=== PATIENT | male | born 1955 | race Caucasian/White ===

== ENCOUNTER → 2019-07-31 10:44 | Outpatient (CLI) | payer OTHER, SELFPAY ==
[2019-07-31 11:56] LABS: Add Manual Diff / Slide Review NO; Basophils Absolute Auto 100 /uL (0-100); Basophils Percent Auto 0.9 % (0-2); Eosinophils Absolute Auto 300 /uL (0-450); Eosinophils Percent Auto 3.1 % (2-4); Hematocrit 43.4 % (41-53); Hemoglobin 15.1 g/dL (13.5-17.5); Lymphocytes Absolute Auto 2300 /uL (1100-4500); Lymphocytes Percent Auto 25.6 % (25-40); Mean Corpuscular HGB Conc 34.9 % (30-36); Mean Corpuscular Hemoglobin 32.6 PG (26-34); Mean Corpuscular Volume 93.4 fL (80-100); Monocytes Absolute Auto 700 /uL (0-900); Monocytes Percent Auto 7.8 % (3-14); Neutrophils Absolute Auto 5600 /uL (1500-7000); Neutrophils Percent Auto 62.6 % (50-75); Platelet Count 240 X10^3/uL (150-400); Red Blood Cell Count 4.65 X10^6/uL (4.5-5.9); Red Cell Distribution Width 12.3 % (11.6-14.8)
[2019-07-31 12:00] LABS: Hemoglobin A1C% w Est Avg Glu 5.6 % (4.0-6.0)
[2019-07-31 12:07] LABS: Carbon Dioxide 24 mmol/L (22-32); Chloride 103 mmol/L (98-107); HEMOLYSIS < 15 (0-50); Potassium 4.4 mmol/L (3.4-5.1); Sodium 138 mmol/L (137-145)
== END ==
PROVIDERS: Referring Provider Orthopaedic Surgery; Visit Provider Orthopaedic Surgery
DX: Z01.818 Encounter for other preprocedural examination (principal); Z01.812 Encounter for preprocedural laboratory examination; R73.9 Hyperglycemia, unspecified
CPT/HCPCS: 36415; 80051; 83036; 85025; 93005

== ENCOUNTER → 2019-08-17 09:46 | Outpatient (CLI) | payer OTHER, SELFPAY ==
[2019-08-18 08:29] LABS: COVID19 Sendout Not Detected (Not Detect)
== END ==
PROVIDERS: Visit Provider Physician Assistant
DX: Z01.812 Encounter for preprocedural laboratory examination (principal)
CPT/HCPCS: 87635

== ENCOUNTER 2019-08-19 07:58 | Day surgery (SDC) | payer OTHER, SELFPAY ==
[2019-08-11 08:40] VITALS: BMI 34.8
[2019-08-19] VITALS (12 sets, daily range): BP systolic 118–150; BP diastolic 70–91; PULSE 75–109; RESP 12–20; TEMP 35.8–36.4; O2SAT 96–100; BMI 34.3
--- NOTE | 2019-08-19 | DI.RAD.S_ITS ---
PROCEDURE: XR HIP RT 1V INDICATIONS: POST OP TECHNIQUE: 2 view(s) of the hip acquired. COMPARISON: None. FINDINGS: Bones: Patient is status post right hip arthroplasty, with hardware components in expected positions. The hip joint appears congruent. The visualized bony structures appear intact. Mild left hip degeneration. Decreased left femoral head neck step-off. Soft tissues: Overlying postoperative changes are noted. No suspicious soft tissue densities. IMPRESSION: Expected postoperative appearance Dictated by: Mert Walton M.D. on 08/19/2019 at 11:28 Approved by: Mert Walton M.D. on 08/19/2019 at 11:29
[2019-08-19] MEDS: LACTATED RINGERS 1,000 ML 42 ML IV (08:32)
--- NOTE | 2019-08-19 08:35 | PM.HP.1 ---
History of Present Illness History of Present Illness Date Patient Seen: 08/19/19 Time Patient Seen: 08:36 Chief complaint: Right Total Hip Arthroplasty *OPB* Narrative: 64-year-old male with progressive right hip pain, limited ambulation and activity tolerance, difficulties with ADLs, pain with activities and at rest, and failure of conservative treatment. He has been followed in clinic and we have discussed the nature of condition, differential diagnosis, prognosis, and options. He would like to proceed with total hip arthroplasty and is admitted to the hospital today for that purpose. Patient History Medical History (Updated 08/11/19 @ 09:17 by Paula Dalal RN) Diabetes (Acute) Eczema (Acute) HLD (hyperlipidemia) (Acute) Osteoarthritis (Acute) RBBB (right bundle branch block) (Acute) Surgical History (Updated 08/11/19 @ 09:17 by Paula Dalal RN) History of vasectomy (Acute) Hx of left knee surgery (Acute) Family & Social History Social History: household members spouse Prior Living Arrangements House Safety & Behavioral: Feels Safe in Current Yes Environment Been Physically Hurt or No Threatened By a Person Suicidal Ideation Description None Suicide Plan Description No Plan Tobacco & Substance use: Tobacco type cigarettes Smoking Status Current some day smoker alcohol intake current alcohol intake frequency 3 or more drinks per day Substance Use Type marijuana Meds Home Medications and Allergies Home Medications Medication Instructions Recorded Confirmed Type acetaminophen [Tylenol Arthritis 1,300 mg PO QD-BID PRN 08/11/19 08/11/19 History Pain] aspirin 81 mg PO DAILY 08/11/19 08/19/19 History atorvastatin 20 mg PO DAILY 08/11/19 08/19/19 History metformin 500 mg PO BID 08/11/19 08/19/19 History Allergies Allergy/AdvReac Type Severity Reaction Status Date / Time No Known Drug Allergies Allergy Verified 08/19/19 08:21 Review of Systems Review of Systems ROS: Yes All systems reviewed with the patient and are negative except as otherwise documented Exam Vital Signs (past 8 hours): - 08/19/19 08:22 Temperature 97.0 F L Pulse Rate 83 Respiratory Rate 16 Blood Pressure 150/91 H Pulse Oximetry 97 Oxygen Delivery Method Room Air Narrative Exam Narrative: Patient is awake, alert, conversant, and oriented. Vital signs are stable and the patient is afebrile HEENT: Normocephalic and atraumatic Lungs: Clear to auscultation Heart: Regular rate and rhythm Abdomen: Benign Extremities limited range of motion of the lower extremities/hips right worse than left with pain on extremes of motion. Distal neurovascular examination is intact. Assessment & Plan Assessment & Plan narrative: 64-year-old male admitted for elective right total hip arthroplasty. Informed consent obtained. COVID-19 COVID-19 status: Negative Result date/Date tested (Pos, Neg/Pending): 08/17/19
[2019-08-19] MEDS: CELECOXIB 200 MG CAPSULE PO (08:39)
[2019-08-19] MEDS: ACETAMINOPHEN 325 MG TABLET 975 MG PO (08:39)
--- NOTE | 2019-08-19 08:39 | PM.PREOP ---
Pre-operative Note COVID-19 COVID-19 status: Negative Result date/Date tested (Pos, Neg/Pending): 08/17/19 Interval Note History & Physical reviewed/Exam performed by Physician: Yes Changes to H&P: No
[2019-08-19] MEDS: CEFAZOLIN 2 GM/100 ML FROZ.PIGGY IV ×2 (08:57→17:04)
[2019-08-19] MEDS: TRANEXAMIC ACID 1,000 MG VIAL 1000 MG IV ×2 (09:15→10:12)
--- NOTE | 2019-08-19 09:33 | SUR.OPER ---
Lateral on padded OR bed. Gel axillary roll. Arms secured on padded armboard with pillow supporting top arm. Padded hip positioner braces x4 - anterior and posterior chest and pelvis. Additional gel pad used anterior pelvis. Gel pad under bottom leg from knee to foot and secured with tape over sheet.
[2019-08-19] MEDS: ROPIVACAINE 0.5% PF 20ML 60 ML, MORPHINE 4 MG, KETOROLAC 30 MG INJ (09:45)
--- NOTE | 2019-08-19 10:49 | P.OP_ITS ---
Operative Date/Time/Diagnoses Date of procedure: 08/19/19 Time of procedure: 10:49 Pre-op diagnosis: Right hip DJD Post-op diagnosis: same Procedure & Clinicians Procedure: Right total hip arthroplasty (CPT code 74097 with assistance) Same procedure as scheduled: Yes Indications: Patient is an 64-year-old male with severe right hip DJD. The patient has pain with activities and at rest, limited ambulation and activity tolerance, difficulties with ADLs, and failure of conservative treatment. We have discussed the nature of condition, treatment options, risks and benefits, and patient elects to proceed with total hip arthroplasty and gives informed consent. Surgeon: Ray Zayas [employer] Beauty Advisor: Sanchez Sullivan Anesthesia Type: General and Spinal Operative Notes Closure Type: primary Specimen(s): none sent Prosthetic devices, grafts, tissues, transplants, or devices: Acetabulum: Wheat and Nephew R3 acetabular component size 58 mm Femoral component: Wheat and Nephew Synergy stem size 5 with high offset Femoral head: 36 mm + 0 Oxinium Estimated Blood Loss (mL): 150 Blood products transfused: none Procedure in detail: After satisfaction induction of anesthetic, and administration of IV antibiotics, the patient was positioned in the lateral decubitus position with all bony prominences well padded and pelvic position secured using a hip beef grinder positioning device. Right hip and lower extremity prepped and draped in the usual sterile fashion, 1st dose of intravenous tranexamic acid was administered, then a longitudinal incision was created centered over the greater trochanter and carried sharply through the skin and subcutaneous tissues down to the fascia anne which was divided longitudinally and retracted with a Charnley retractor. External rotators visualize, cut, tagged, and retracted posteriorly, then the capsule was cut in a T-type fashion with the corners tagged and retracted. Hip was dislocated and femoral neck cut made according to preoperative templating. Acetabular retractors then placed, and the acetabular labrum and osteophytes were excised. The acetabulum was then sequentially reamed to 57 mm with an excellent circumferential ream and fit with the trial. The trial component was removed and a permanent size 58 mm Wheat and Nephew R3 acetabular component was selected, positioned, and impacted with satisfactory position and fixation achieved. Permanent liner was then inserted with the elevated lip directed posteriorly. Soft tissue then removed off the lateral femoral neck in the lateral neck was entered using a box osteotome. T- handled reamers placed down the canal followed by sequential broaching to 5 with the final broach left in place for trial reduction which demonstrated excellent leg length, range of motion, and stability characteristics with a 36 mm +0 trial ball. The trial and broach were removed, and a permanent size 5 high offset Whaet and Nephew Synergy stem was selected and inserted with excellent position and fixation achieved. Another trial reduction yielded the above characteristics so the trial ball was exchanged for a permanent 36 mm +0 Oxinium ball. The hip was irrigated and reduced and excellent leg length range of motion and stability characteristics were achieved and maintained. Periarticular tissues were infiltrated with morphine, ropivacaine, and Toradol. The hip was copiously irrigated, and the capsule repaired with #2 Ethibond, and the piriformis was repaired back to the greater trochanter with the same. Fascia anne closed with interrupted #1 Ethibond sutures, and the subcutaneous tissues were closed in 2 layers of 0 Vicryl and 2 0 Vicryl. Skin was closed with miriam and sterile dressings applied. Second dose of tranexamic acid was administered intravenously, and the anesthetic was terminated. Complications: none Post-operative Condition: stable Disposition: PACU Plan for aftercare: Patient will be admitted to the acute care [facility], and anticipate discharge on postop day 1 with follow-up in office in 10-14 days. Outpatient physical therapy will be arranged and patient will continue to observe posterior hip precautions. Patient will continue use of postoperative Lovenox for 10 days postop.
[2019-08-19] MEDS: LACTATED RINGERS 1,000 ML 125 ML IV ×2 (11:36→19:25)
--- NOTE | 2019-08-19 12:14 | PC.NURSE ---
Pt to room 220 via bed from PACU - post op right EVANGELINA. Pt denies pain, able to feel sensation but not yet able to lift or wiggle his right leg. Pt 100% on RA. VS stable. BG 172. SCD's on and running. IVF infusing as ordered. Oriented Pt to room, call light, bed controls, and tv controls. Bed alarm on for safety. Urinal at bedside. Pt agrees to call for assistance as needed and to not get up without staff assistance. Encouraged ankle waves and deep breathing exercises.
--- NOTE | 2019-08-19 12:45 | DIET.PN ---
Dietary Progress Note Pt diet order states pt prefers ketogenic diet. Offered to help curate meals if desiring assistance. Visited pt to give menu, pt happy to order for self in style of keto diet. Late lunch of omelet c black coffee.
--- NOTE | 2019-08-19 14:19 | PT.IIE ---
Current Diagnoses Unilateral primary osteoarthritis, right hip (08/19/19) Surgery Performed Operation Date: 08/19/19 08:45 Actual Procedures p Total Hip Arthroplasty(Right) - Ray Zayas MD Surgical History (Last Updated 08/11/19 @ 09:17 by Paula Dalal, RN) History of vasectomy (Acute) Hx of left knee surgery (Acute) Medical History (Last Updated 08/11/19 @ 09:17 by Paula Dalal RN) Diabetes (Acute) Eczema (Acute) HLD (hyperlipidemia) (Acute) Osteoarthritis (Acute) RBBB (right bundle branch block) (Acute) Physical Therapy Inpatient Evaluation/Re-Eval M1 PT/OT-IP Prior Functional Status Start: 08/19/19 16:15 Freq: NEEDED Status: Active Protocol: Document 08/19/19 14:19 AB (Rec: 08/19/19 16:28 AB [id number]) Medical Review Prior Functional Status Medical History Reviewed Yes Communication able to make needs known Mobility and Gait stated that he is independent with all mobilityes and ambulation without AD Social History Household Members spouse Living Arrangements House Number of Floors (Floors) Two Floors Number of Stairs To Enter/Railing? pt stays on main level of the house has 1 step to enter Home Environment High Toilet,Walk in Shower Home Equipment Front Wheel Walker,Shower Seat with Backrest M2 PT-IP Current Condition Start: 08/19/19 16:15 Freq: NEEDED Status: Active Protocol: Document 08/19/19 14:19 AB (Rec: 08/19/19 16:28 AB [id number]) Physical Therapy Current Condition Current Condition Evaluation Date 08/19/19 Treatment Diagnosis s/p R EVANGELINA posterior approach; difficulty in walking Onset Date 08/19/19 Weight Bearing Status Weight Bearing Status Weight Bear as Tolerated Allowed Weight Bearing Amount (enter % RLE WBAT or #) (%) M3 PT-IP Subjective Start: 08/19/19 16:15 Freq: NEEDED Status: Active Protocol: Document 08/19/19 14:19 AB (Rec: 08/19/19 16:28 AB [email or web address]) Subjective Physical Therapy Visit Type Type Initial Evaluation Visit Start Time 14:19 Visit Stop Time 15:03 Total Visit Minutes 44 Number of WELLNESS RN Visits 0 Physical Therapy Visit Comments Patient Comments agreeable to do PT Therapy Pain Assessment Pain Present Pain Present Denied Pain M4 PT-IP Mobility and Gait Start: 08/19/19 16:15 Freq: NEEDED Status: Active Protocol: Document 08/19/19 14:19 AB (Rec: 08/19/19 16:28 AB [email or web address]) PT-Bed Mobility Assessment Supine to Sit Supine to Sit Maximum Assistance,1 Person Assistance PT-Transfer Assessment Sit to and From Stand Sit to and from Stand Minimal Assistance,1 Person Assistance,Use of Upper Extremities Equipment Transfer Assistive Device Gait Belt,Front Wheeled Walker Orthotic/Prosthetic Devices or Brace: No Transfers Transfer Destination Toilet Transfer Technique ambulated using FWW Transfer Ability Level of Assist Minimal Assistance,1 Person Assistance,Use of Upper Extremities Comments Mobility Comments reviewed hip precautions with pt and spouse. Pt completed supine to sit max A and max cues. pt was able to sit on EOB SBA. completed sit to stand min A and cues for hip precautions. pt ambulated towards the toilet using FWW requiring min A and cues. pt completed sit to stand from the toilet min A and cues and ambulated towards the chair using FWW min A and cues. pt requiring cues to maintain hip precautions. pt refused further ambulation and wants to rest but agreed to sit up on chair. positioned pt on chair. call light and table placed within reach. left pt with spouse in room . Gait Assessment Gait Gait Assistance Required: Minimum Assistance,1 Person Assist Distance (Feet) 15 Able to Maintain Weight Bearing Status Yes During Gait Assistive Devices Assistive Device Gait Belt,Front Wheeled Walker Orthotic/Prosthetic Devices or Brace: No Gait Deviations General Gait Pattern Antalgic,Decreased Stride Length,Decreased Feet Clearance Factors Limiting Gait Function Factors Limiting Gait Function Decreased Activity Tolerance, Decreased Strength,Limited Range of Motion,Pain,Poor Balance,Poor Safety Awareness PT-Balance Assessment Sitting Balance and Reactions Static Sitting Balance Ability Good Dynamic Sitting Balance Ability Good Standing Balance and Reactions Static Standing Balance Ability Fair Dynamic Standing Balance Ability Fair Device Used FWW M5 PT-IP Objective Assessments Start: 08/19/19 16:15 Freq: NEEDED Status: Active Protocol: Document 08/19/19 14:19 AB (Rec: 08/19/19 16:28 AB [email or web address]) Orientation Orientation/Cognition Level of Alertness Alert Orientation Name,Place,Situation Language Function Ability No Deficits Noted Safety Awareness Understands Safety Issues Memory Description No Deficits Noted Gross Range of Motion Lower Extremity ROM Assessment Within Functional Limits Strength Lower Extremity Strength Assessment Right Impaired Hip 3+/5 Knee 4-/5 Coordination Assessment Gross Coordination Gross Coordination WNL Sensation Assessment Comments Sensation Comments still c/o slight numbness on R upper thigh Muscle Tone Muscle Tone WNL Yes M6 PT-IP Treatment Start: 08/19/19 16:15 Freq: NEEDED Status: Active Protocol: Document 08/19/19 14:19 AB (Rec: 08/19/19 16:28 AB [id number]) Physical Therapy Treatment Education Education Provided Precautions,Weight Bearing Status,Post-Op Packet,Safety M7 PT-IP Assessment and Plan Start: 08/19/19 16:15 Freq: NEEDED Status: Active Protocol: Document 08/19/19 14:19 AB (Rec: 08/19/19 16:28 AB [email or web address]) PT Summary Assessment and Plan Potential Rehabilitation Potential Good Status of Condition at Evaluation Stable Summary Impairments Pain,ROM,Strength,Balance, Sensation,Bed Mobility, Transfers,Gait,Activity Tolerance Assessment Summary pt requiring min A with mobility using FWW. pt just had surgery this morning and will likely progress with mobility during hospital stay. set up caregiver training and spouse said that she will be coming in at ~ 830 am tomorrow 08/20/19. d/c plan depending on caregiver training but most likely, pt will progress and be safe to go home with spouse to assist. pt also has outpt PT scheduled. Goals Bed Mobility Goal Independent Transfer Goal Independent,Front Wheeled Walker Gait Goal Independent,Front Wheel Walker Gait Distance 150 Other Goals up/down 1 step using FWW SBA Days to Meet Goals 5 Frequency of Treatment Frequency Of Treatment Twice a Day Treatment Plan Physical Therapy Treatment Plan Bed Mobility Training,Transfer Training,Gait Training, Therapeutic Exercise,Balance Retraining,Post Op Education, Discharge Planning,Hot or Cold Pack,Neuromuscular Re-ed, Coordination Retraining,Manual Therapy Other Recommendations and Next Treatment caregiver training 830 am ; stair climbing Recommendations To Nursing Amount of Assist Needed 1 Person Assist Discharge Recommendations PT Discharge Recommendations Home with Assistance, Outpatient PT Transportation Needs at Discharge Private Vehicle
[2019-08-19] MEDS: ACETAMINOPHEN 325 MG TABLET 650 MG PO ×2 (14:37→20:37)
[2019-08-19] MEDS: OXYCODONE IR 5 MG TABLET PO ×3 (17:08→23:59)
[2019-08-19] MEDS: DOCUSATE 100 MG CAPSULE PO (20:37)
[2019-08-19] MEDS: METFORMIN HCL 500 MG TABLET PO (20:38)
--- NOTE | 2019-08-19 21:45 | PC.NURSE ---
Evening Shift Note- Patient alert and oriented and able to make needs known to staff. Patient pleasent, calm, and cooperative with care. PRN oxycodone given as needed for complaints of pain. Patient tolerated without issue. Bulky dressing to right hip c/d/i. Patient requires stand-by assist to 1PA w/ walker. Safety measures in place. call finnegan and phone within reach. will continue to monitor.
[2019-08-20] MEDS: CEFAZOLIN 2 GM/100 ML FROZ.PIGGY IV
[2019-08-20 00:20] VITALS: BP 135/84; PULSE 88; RESP 18; TEMP 36.9; O2SAT 97
[2019-08-20] MEDS: LACTATED RINGERS 1,000 ML 125 ML IV (03:23)
[2019-08-20 05:24] VITALS: BP 126/71; PULSE 76; RESP 18; TEMP 36.6; O2SAT 98
[2019-08-20 06:05] LABS: Hematocrit 34.6 % (41-53); Hemoglobin 12.1 g/dL (13.5-17.5)
[2019-08-20] MEDS: OXYCODONE IR 5 MG TABLET PO (06:26)
[2019-08-20 07:30] VITALS: BP 120/70; PULSE 72; RESP 16; TEMP 36.2; O2SAT 98
[2019-08-20] MEDS: ASPIRIN EC 81 MG TABLET PO (08:15)
[2019-08-20] MEDS: METFORMIN HCL 500 MG TABLET PO (08:15)
[2019-08-20] MEDS: ATORVASTATIN 20 MG TABLET PO (08:15)
[2019-08-20] MEDS: ACETAMINOPHEN 325 MG TABLET 650 MG PO (08:16)
[2019-08-20] MEDS: DOCUSATE 100 MG CAPSULE PO (08:16)
[2019-08-20] MEDS: SODIUM CHLORIDE 0.9% FLUSH 10 ML IV (08:16)
--- NOTE | 2019-08-20 09:28 | PT.IPTN ---
Current Diagnoses Unilateral primary osteoarthritis, right hip (08/19/19) Surgery Performed Operation Date: 08/19/19 08:45 Actual Procedures p Total Hip Arthroplasty(Right) - Ray Zayas MD Physical Therapy Treatment Note M2 PT-IP Current Condition Start: 08/19/19 16:15 Freq: NEEDED Status: Discharge Protocol: Document 08/19/19 14:19 AB (Rec: 08/19/19 16:28 AB [id number]) Physical Therapy Current Condition Current Condition Evaluation Date 08/19/19 Treatment Diagnosis s/p R EVANGELINA posterior approach; difficulty in walking Onset Date 08/19/19 Weight Bearing Status Weight Bearing Status Weight Bear as Tolerated Allowed Weight Bearing Amount (enter % RLE WBAT or #) (%) M3 PT-IP Subjective Start: 08/19/19 16:15 Freq: NEEDED Status: Discharge Protocol: Document 08/20/19 08:58 SP (Rec: 08/20/19 13:00 SP [email or web address]) Subjective Physical Therapy Visit Type Type Treatment Note Visit Start Time 08:58 Visit Stop Time 09:28 Total Visit Minutes 30 Notes in room for caregiver training when arrived, second attempt. Number of ADJUSTER ARBITRATOR Visits 1 Physical Therapy Visit Comments Patient Comments Pt agreeable to working with PT. Therapy Pain Assessment Pain When Pain Assessed During Mobility Pain Present Pain Present Pain Reported Location Right Hip Intensity 2 Scale Used Numeric (0 - 10) Pain Management Techniques Re-positioning,Timing of Activity with Medications M4 PT-IP Mobility and Gait Start: 08/19/19 16:15 Freq: NEEDED Status: Discharge Protocol: Document 08/20/19 08:58 SP (Rec: 08/20/19 13:00 SP [email or web address]) PT-Bed Mobility Assessment Supine to Sit Supine to Sit Standby Assistance Sit to Supine Sit to Supine Standby Assistance Scooting Scooting to Edge of Bed Standby Assistance PT-Transfer Assessment Sit to and From Stand Sit to and from Stand Contact Guard Assistance,1 Person Assistance,Use of Upper Extremities Equipment Transfer Assistive Device Gait Belt,Front Wheeled Walker Orthotic/Prosthetic Devices or Brace: No Transfers Transfer Destination Bed,Chair Transfer Technique ambulated using FWW Transfer Ability Level of Assist Contact Guard Assistance,1 Person Assistance,Use of Upper Extremities Comments Mobility Comments Pt was upright in chair not present when initially arrived at 0838, patient requested to return in 15- 20 min. present and completed caregiver training providing support for mobility . Scoot to EOchair using BUE on chair arms SBA, sit to stand CGA by while patient using BUE on chair arms and FWW. Pt ambulated further distance into hallway CGA provided by and w/c follow but not needed from chair to platform step, ascend /descend 1 platform step using FWW post education on sequencing FWW and BLE with success, stable and CGA by . Pt ambulated back to L side of bed in room total approx 500 ft using FWW and required 5 stop stand rests secondary to decreased strength and endurance. ADJUSTER ARBITRATOR provided patient and patient cuing for RLE knee flexion and heel toe initially step to and heavier WB onFWW then progressed to receiprocal patterning gait which improved foot clearance and stride as distance progressed. Pt was tiring and increased BUE WB on FWW toward end of distance, stated pain level stayed the same 2/10 throughout session. Pt required cuing from ADJUSTER ARBITRATOR for FWW positioning CGA by while backing up completely and reaching back before sitting to assist slow safe descent onto bed. Pt lateral scooted up to HOB SBA then SBA sitting<> supine with ability to self lift RLE into/out of bed itself. Instructed post op LE exercises RLE: ankle pumps , quad and glut sets, heel slides, hip abd approx 8 x5 reps each, SLR x2 before stated discomfort and stopped. Pt requested getting back to chair CGA by bed to chair , cued for R LE positioned forward prior to reaching back to sit with SBA descent. Pt was reclined in chair with in room, all needs in reach. ADJUSTER ARBITRATOR communicated with nursing that patient is able to return home with to assist when medically stable. Recommending Outpt PT. Gait Assessment Gait Gait Assistance Required: Contact Guard Assist,1 Person Assist Distance (Feet) 500 Able to Maintain Weight Bearing Status Yes During Gait Assistive Devices Assistive Device Gait Belt,Front Wheeled Walker Orthotic/Prosthetic Devices or Brace: No Gait Deviations General Gait Pattern Antalgic,Decreased Stride Length,Decreased Feet Clearance,Step-to Gait Factors Limiting Gait Function Factors Limiting Gait Function Decreased Activity Tolerance, Decreased Strength,Limited Range of Motion,Pain,Poor Balance,Poor Safety Awareness Comments Gait Comments See mobility comments. Stair Climbing Assessment Evaluation Level of Assist On Stairs Contact Guard Assistance,1 Person Assistance Devices Stair Climbing Assistive Devices Front Wheel Walker Technique/Endurance Stair Climbing Direction Ascend and Descend Stair Climbing Technique Step to Step Number of Steps Climbed 1 Stair Climbing Set # Repetitions (reps) 1 Comments Stair Climbing Comments see mobility comments. PT-Balance Assessment Sitting Balance and Reactions Static Sitting Balance Ability Good Dynamic Sitting Balance Ability Good Standing Balance and Reactions Static Standing Balance Ability Fair Dynamic Standing Balance Ability Fair Device Used FWW M5 PT-IP Objective Assessments Start: 08/19/19 16:15 Freq: NEEDED Status: Discharge Protocol: Document 08/19/19 14:19 AB (Rec: 08/19/19 16:28 AB [email or web address]) Orientation Orientation/Cognition Level of Alertness Alert Orientation Name,Place,Situation Language Function Ability No Deficits Noted Safety Awareness Understands Safety Issues Memory Description No Deficits Noted Gross Range of Motion Lower Extremity ROM Assessment Within Functional Limits Strength Lower Extremity Strength Assessment Right Impaired Hip 3+/5 Knee 4-/5 Coordination Assessment Gross Coordination Gross Coordination WNL Sensation Assessment Comments Sensation Comments still c/o slight numbness on R upper thigh Muscle Tone Muscle Tone WNL Yes M6 PT-IP Treatment Start: 08/19/19 16:15 Freq: NEEDED Status: Discharge Protocol: Document 08/20/19 08:58 SP (Rec: 08/20/19 13:00 SP [email or web address]) Physical Therapy Treatment Exercises Exercises Ankle Pumps,Gluteal Sets,Quad Sets,Heel Slides,Straight Leg Raises,Supine Hip Abduction, Seated Knee Flexion/Extension Education Education Provided Precautions,Weight Bearing Status,Post-Op Packet,Safety Other Treatments Other Treatment Performed Instructed bridging for education on assisting bed mobility, successful for self mobility. M7 PT-IP Assessment and Plan Start: 08/19/19 16:15 Freq: NEEDED Status: Discharge Protocol: Document 08/20/19 08:58 SP (Rec: 08/20/19 13:00 SP [email or web address]) PT Summary Assessment and Plan Potential Rehabilitation Potential Good Status of Condition at Evaluation Stable Summary Impairments Pain,ROM,Strength,Balance, Sensation,Bed Mobility, Transfers,Gait,Activity Tolerance Assessment Summary pt requiring SBA with bed mob, CGA with standing mobility using FWW, required safety hand placement and FWW repositoning backing up fully pre sitting for safety. Pt completed caregiver training provided support that needed. Pt is ok to return home with when medicall stable, outpt PT scheduled. Goals Bed Mobility Goal Independent Transfer Goal Independent,Front Wheeled Walker Gait Goal Independent,Front Wheel Walker Gait Distance 150 Other Goals up/down 1 step using FWW SBA Days to Meet Goals 5 Frequency of Treatment Frequency Of Treatment Twice a Day Treatment Plan Physical Therapy Treatment Plan Bed Mobility Training,Transfer Training,Gait Training, Therapeutic Exercise,Balance Retraining,Post Op Education, Discharge Planning,Hot or Cold Pack,Neuromuscular Re-ed, Coordination Retraining,Manual Therapy Recommendations To Nursing Amount of Assist Needed 1 Person Assist Discharge Recommendations PT Discharge Recommendations Home with Assistance, Outpatient PT Transportation Needs at Discharge Private Vehicle
--- NOTE | 2019-08-20 10:27 | PC.NURSE ---
Dressing to right hip changed to Coversite. IV removed. Pt dressing with assistance from Spouse. Went over d/c instructions with Pt and Spouse-discussed d/c meds, time of last dose, reviewed stroke education, s/s of infection, recommended increased fluid intake to prevent constipation or dehydration and follow up appointment. Pt and Spouse denied further questions and Pt was taken to POV via w/c by GIS SCIENTIST with Spouse and all belongings.
--- NOTE | 2019-08-20 15:16 | CM.DANOTE ---
Discharge Planning/Care Management DCP: assessment: case received and discussed in team Rounds. A d/c to home order was in place. Pt is a 64 year old male who admitted yesterday for a scheduled RTHA. He did well with PT and had left for the home setting before Rounding was over. [place] [facility] [place], confirm from FAMILY Start: 08/19/19 11:59 Freq: Q24H Status: Discharge Protocol: Document 08/19/19 12:04 CM (Rec: 08/19/19 12:04 CM [id number]) Advance Directive, confirm on record Time 12:04 Person contacted pt Copy received No CM Discharge Assessment Start: 08/20/19 15:13 Freq: Status: Active Protocol: Document 08/20/19 15:13 ITV (Rec: 08/20/19 15:14 ITV [id number]) Discharge Planning Assessment Advance Directives? Yes Advance Directives on File No Prior Living Arrangements House Household Members spouse Discharge Plan Home Document 08/20/19 15:15 ITV (Rec: 08/20/19 15:15 ITV [email or web address]) Discharge Planning Assessment Advance Directives? Yes Advance Directives on File No History Provided By Patient Prior Living Arrangements House Household Members spouse Discharge Plan Home Review Status In Process Pre-Anesthesia Assessment Start: 08/11/19 08:40 Freq: Status: Complete Protocol: Document 08/11/19 08:40 CAB (Rec: 08/11/19 09:50 CAB [id number]) Pre-Anesthesia Assessment Preferred Name Roger Patient Information Reviewed Via Phone Assessment Assessment Completed With Patient Diagnostic Results CBC,EKG,Electrolytes Comment Labs/EKG @ 07/31/19 Primary Care Provider García Mckay Seen Specialist in Last 12 Months Yes Specialist Seen Orthopedist Primary Language Somali Hand Salter Required No Height 177.8 cm Weight 110.223 kg Body Mass Index (BMI) 34.8 Hearing Ability Normal Visual Assist Contacts,Glasses Dentition Type Teeth, Natural Present Barriers to Learning None Hx Anesthesia Reactions No Hx Family Anesthesia Reaction No Hx Malignant Hyperthermia No Hx Blood Transfusions No Anesthesia Review Requested No alcohol intake current alcohol intake frequency 3 or more drinks per day Smoking Status Current some day smoker Tobacco type cigarettes how long ago did patient quit smoking Trying to quit, socially smoking Substance Use Type marijuana Comment Advised not to smoke marijuana 24 hours prior to surgery Pain Present Pain Reported Musculoskeletal Symptoms Abnormal Gait,Back Pain, Difficulty Walking,Joint Pain History of Falling (Recent or History of No ) Patient is completely paralyzed or No completely immobile Mental Status Oriented to own ability Is patient on oxygen? No Does patient have GARIBAY/SOB No Hx Sleep Apnea No Currently Taking a Beta Tasneem No Can You Climb a Flight of Stairs Without Yes SOB Hx Chest Pain No Hx SOB No Hx Syncope or Dizziness No Anti-Coagulant Therapy No Has a Drain Technician No Cardiac Testing No Hx Pacemaker/ICD No Pacemaker Rep Required? No Cardiac Clearance Received Not Applicable Diet Type At Home Ketogenic dysphagia No Bladder Pattern Frequency Urinary Catheter Present No Hx Urinary Self Catheterization No Diabetes Yes: Pt checks blood sugar once a month HgbA1C 5.6 Date 07/31/19 Hx Drug Resistant Organism No Presence of External or Internal Medical No Devices Have you had any close contact with No someone diagnosed with COVID-19? Evaluation/Screening for possible COVID- Yes 19 infection completed? Marital Status Lives With spouse Prior Living Arrangements House Number of Floors (Floors) Two Floors Support System Spouse Does the Patient Have Assistance After Yes Surgery Patient Discharge Plan Description Return Home Comment Pt advised 1 night length of stay per surgeon Feels Safe in Current Environment Yes Been Physically Hurt or Threatened By a No Person in Current Environment Do you have thoughts of harming yourself None or others? Are you currently considering suicide? No Do you have a plan to hurt yourself or No Plan others? Do You Have Any Spiritual Beliefs That No May Affect Your HC Choices? Do You Have Any Cultural Practices That No May Affect Your HC Choices? Comment Holiness Who Can We Speak to About Patient's Care Family, friends Identifying Code for Release of Patient Declines to issue Information Health Care Proxy/Next of Kin Nelly () Health Care Proxy Emergency Contact Name Nelly () Emergency Contact Advance Directives? Yes Advance Directives on File No Requested Patient Bring Advanced Yes Directives DOS Power of Swimming Pool Maintenance Yes Power of Swimming Pool Maintenance Name Nelly () Claudia ( daughter) Power of Swimming Pool Maintenance Phone Number Nelly: [phone] Claudia : [phone] PAC Instructions Diabetes instructions,Durable medical equipment,Medications to take/avoid,Nasal antibiotic ,No ETOH/petroleum product on skin DOS,Post-op transportation,Pre-surgical wash,Sensory aids,Sturdy shoes /comfortable clothes,Do not bring valuables and remove jewelry Stop Bang Assessment Do you snore loudly (louder than talking Yes or loud enough to be heard through closed doors) Do you often feel tired, fatigued or No sleepy during the daytime Has anyone ever observed you stop Yes: states not recently breathing while sleeping? w/weight loss Do you have, or are you being treated No for, high blood pressure Is your BMI more than 35 kg/m2 No Age over 50 Yes Estimated neck circumference greater Yes than 40cm or 16in Gender male Yes Result Positive
== END 2019-08-20 10:45 | disposition home or self-care (01) ==
LOC: OR 08:03 → AC 08:04
PROVIDERS: PCP Family Medicine; Referring Provider Orthopaedic Surgery; Visit Provider Orthopaedic Surgery
PROC: 0SR90JZ Replacement of Right Hip Joint with Synthetic Substitute, Open Approach (ICD-10-PCS; CPT 27130; principal; 2019-08-19 08:45)
DX: M16.11 Unilateral primary osteoarthritis, right hip (principal); E11.9 Type 2 diabetes mellitus without complications; Z79.84 Long term (current) use of oral hypoglycemic drugs; I45.10 Unspecified right bundle-branch block; E78.5 Hyperlipidemia, unspecified
CPT/HCPCS: 27130; 36415; 73501; 82962; 85014; 85018; 97110; 97116; 97161; 97530; C1776; J0690; J1100; J1885; J2250; J2270; J2405; J2704; J2795; J3010

== ENCOUNTER 2022-09-13 00:57 | Emergency (ER) | payer MEDICARE, OTHER, SELFPAY ==
[2019-08-19 11:43] VITALS: BMI 34.3
[2022-09-13 01:03] VITALS: BP 193/84; PULSE 80; RESP 19; TEMP 36.7; O2SAT 96; BMI 37.3
--- NOTE | 2022-09-13 01:11 | DI.CT.S_ITS ---
PROCEDURE: CT KIDNEY URETER BLADDER (KUB) INDICATIONS: right flank pain possible kidney stone TECHNIQUE: Axial sections were acquired from the lung bases to the pubic symphysis. Coronal and sagittal reformats were performed. For radiation dose reduction, the following was used: automated exposure control, adjustment of mA and/or kV according to patient size. COMPARISON: None. FINDINGS: Image quality: There is metallic streak artifact from patient's right hip prosthesis. Lung bases: There is a small loculated right pleural effusion with associated pleural thickening versus a small empyema. There is associated right basilar atelectasis and scarring. Left lung bases clear. Heart: Heart is normal in size. URINARY: Right Kidney and Ureter: There is an obstructing stone at the right ureteropelvic junction measuring up to 0.8 cm with attenuation values of approximately 400-500 Hounsfield units. There is associated mild right hydronephrosis with perinephric and periureteral fat stranding. The right ureter is nondistended distal to the UPJ. There are 3 additional nonobstructing stones within the right kidney with the largest measuring up to 0.5 cm. An exophytic right renal cyst is noted. Left Kidney and Ureter: No stones or hydronephrosis. No hydroureter. Bladder: Normal wall thickness. No stones. ABDOMEN: Liver: There is heterogeneous attenuation of the liver suggestive of fatty infiltration. Gallbladder: Surgically absent. Biliary ducts: No biliary ductal dilatation. Pancreas: Unremarkable. Spleen: Normal in size. Adrenal Glands: No adrenal nodules. Stomach and Bowel: Stomach, small bowel loops, and colon are normal in caliber and wall thickness. The appendix is normal. There is colonic diverticulosis without acute diverticulitis. Peritoneum: No abnormal intraperitoneal fluid. No free air. Ventral Wall: No hernia. Abdominal Nodes: No retroperitoneal or mesenteric adenopathy by size criteria. Vessels: Aorta and inferior vena cava are normal in size. PELVIS: Pelvic Organs: Unremarkable. Pelvic Nodes: No enlarged lymph nodes. Miscellaneous: No inguinal hernias identified. Bones: Visualized osseous structures demonstrate no suspicious focal lesions. IMPRESSION: 1. Obstructing urinary stone at the right UPJ with mild right hydronephrosis. 2. Additional nonobstructing right renal stones as described. 3. No evidence of appendicitis. Dictated by: Sanchez Dc M.D. on 09/13/2022 at 2:39 Approved by: Sanchez Dc M.D. on 09/13/2022 at 2:44
[2022-09-13] MEDS: KETOROLAC 30 MG/ML VIAL 15 MG IV (01:21)
[2022-09-13] MEDS: ONDANSETRON 4 MG/2 ML INJ IV (01:22)
[2022-09-13 01:27] LABS: Bacteria Urine Few (2-10); RBC Urine 5-10/HPF (0-5/HPF); WBC Urine 1-5/HPF (0-5/HPF)
[2022-09-13 01:28] LABS: Squamous Epithelial Cell Urine 0-1 /HPF (0-5/HPF); Uric Acid Crystals Urine Moderate
[2022-09-13 01:29] LABS: Amorphous Sediment Urine 1+; Granular Casts Urine 1-5/LPF; Hyaline Casts Urine 1-5/LPF; Mucus Urine 2+ (Negative)
[2022-09-13 01:30] LABS: Culture Indicated Urine Cult Not Indicated
[2022-09-13 01:37] LABS: Add Manual Diff / Slide Review NO; Basophils Absolute Auto 100 /uL (0-100); Basophils Percent Auto 0.7 % (0-2); Eosinophils Absolute Auto 400 /uL (0-450); Eosinophils Percent Auto 2.8 % (2-4); Hematocrit 40.7 % (41-53); Lymphocytes Absolute Auto 2900 /uL (1100-4500); Lymphocytes Percent Auto 21.3 % (25-40); Mean Corpuscular HGB Conc 34.4 % (30-36); Mean Corpuscular Hemoglobin 30.4 PG (26-34); Mean Corpuscular Volume 88.5 fL (80-100); Monocytes Absolute Auto 1000 /uL (0-900); Monocytes Percent Auto 7.4 % (3-14); Neutrophils Absolute Auto 9100 /uL (1500-7000); Neutrophils Percent Auto 67.8 % (50-75); Platelet Count 313 X10^3/uL (150-400); Red Cell Distribution Width 13.1 % (11.6-14.8); White Blood Cell Count 13.4 X10^3/uL (4.5-11.0)
[2022-09-13 01:39] LABS: Alanine Aminotransferase 24 IU/L (<50); Albumin 4.4 g/dL (3.5-5.0); Albumin Globulin Ratio 1.1 (1.0-2.8); Alkaline Phosphatase 131 U/L (38-126); Aspartate Aminotransferase 26 IU/L (17-59); BUN Creatinine Ratio 24.3 (6-22); Bilirubin Total 0.6 mg/dL (0.2-1.3); Blood Urea Nitrogen 25 mg/dL (9-20); Calcium 9.3 mg/dL (8.4-10.2); Carbon Dioxide 25 mmol/L (22-32); Chloride 100 mmol/L (98-107); Estimated Glomerular Filt Rate > 60 mL/min (>60); Glucose 282 mg/dL (80-110); HEMOLYSIS < 15 (0-50); Potassium 4.1 mmol/L (3.4-5.1); Sodium 136 mmol/L (137-145); Total Protein 8.4 g/dL (6.3-8.2)
--- NOTE | 2022-09-13 03:55 | ED_ITS ---
HPI - Back Pain/Injury General Chief Complaint: Back Pain/Injury Stated Complaint: abd pain rt side Time Seen by Provider: 09/13/22 03:53 Source: patient and family History of Present Illness HPI Narrative: Patient is a 67 year male history of hypertension hyperlipidemia diabetes presents today with sudden onset of right-sided flank pain. He reports that it has been going on for last couple of days seems to be coming and going radiating from his flank to his abdomen. Tonight he was unable to sleep and pain got very intense. He did throw up once been nauseated. No fever or chills. Denies chest pain palpitations shortness of breath. He has received Toradol here in the ED which has helped him tremendously with pain. Related Data Home Medications Medication Instructions Recorded Confirmed acetaminophen 650 mg 1,300 mg PO QD-BID PRN Pain 08/11/19 08/11/19 tablet,extended release (Tylenol Arthritis Pain) aspirin 81 mg tablet,delayed 81 mg PO DAILY 08/11/19 08/19/19 release atorvastatin 20 mg tablet 20 mg PO DAILY 08/11/19 08/19/19 metformin 500 mg tablet 500 mg PO BID 08/11/19 08/19/19 Previous Rx's Medication Instructions Recorded hydroxyzine pamoate 25 mg capsule 25 mg PO Q6HR PRN Spasms #40 caps 08/20/19 oxycodone 5 mg tablet 5 mg PO Q3HR PRN Pain, Moderate 08/20/19 (4-6) #40 tabs cephalexin 500 mg capsule 500 mg PO BID 7 days #14 caps 09/13/22 hydrocodone 5 mg-acetaminophen 325 1 tab PO Q6H PRN pain #10 tabs 09/13/22 mg tablet ondansetron 4 mg disintegrating 4 mg PO Q8H PRN nausea and 09/13/22 tablet vomiting #10 tabs tamsulosin 0.4 mg capsule (Flomax) 0.4 mg PO DAILY #7 caps 09/13/22 Allergies Allergy/AdvReac Type Severity Reaction Status Date / Time No Known Drug Allergies Allergy Verified 08/19/19 08:21 Review of Systems Review of Systems ROS Unobtainable: All systems reviewed & are unremarkable except as noted in HPI and below Patient History Medical History Diabetes Eczema HLD (hyperlipidemia) Osteoarthritis RBBB (right bundle branch block) Surgical History History of vasectomy Hx of left knee surgery Social History household members: spouse Smoking Status: Former smoker alcohol intake: current Smoking Status: Former smoker alcohol intake frequency: 3 or more drinks per day Substance Use Type: marijuana Exam Initial Vital Signs Initial Vital Signs: Vital Signs Temperature 98.1 F 09/13/22 01:03 Pulse Rate 80 09/13/22 01:03 Respiratory Rate 19 09/13/22 01:03 Blood Pressure 193/84 H 09/13/22 01:03 Pulse Oximetry 96 09/13/22 01:03 Oxygen Delivery Method Room Air 09/13/22 01:03 GENERAL: Alert pleasant well-appearing 67-year-old male HEENT: Head atraumatic,EOMI, pupils reactive, face symmetric, moist mucous membranes CARDIOVASCULAR: Regular rate and rhythm without murmurs, rubs or gallops. RESPIRATORY: Breath sounds equal bilaterally, no wheezes rales or rhonchi. ABDOMEN: Soft, nontender. Normoactive bowel sounds all 4 quadrants. No guarding or rebound. : Minimal CVA tenderness EXTREMITIES: Normal range of motion, no clubbing or edema. Neurovascularly intact NEUROLOGICAL: Alert and oriented x4. SKIN: Warm, dry, no laceration, no petechiae, no rashes or lesions. Course Orders Ordered: ED Orders 09/13/22 01:11 CT kidney ureter bladder (KUB) Stat 09/13/22 01:13 Urine Microscopic Stat 09/13/22 01:15 Complete Blood Count AUTO DIFF Stat Comprehensive Metabolic Panel Stat Discontinued Medications Ketorolac Tromethamine (Ketorolac 30 Mg/Ml Vial) 15 mg IV NOW ONE Stop: 09/13/22 01:12 Last Admin: 09/13/22 01:21 Dose: 15 mg Documented By: DILCIA Ondansetron HCl (Ondansetron 4 Mg/2 Ml Inj) 4 mg IV NOW ONE Stop: 09/13/22 01:13 Last Admin: 09/13/22 01:22 Dose: 4 mg Documented By: DILCIA Vital Signs Vital signs: Vital Signs - 8 hr 09/13/22 01:03 Temperature 98.1 F Pulse Rate 80 Respiratory Rate 19 Blood Pressure 193/84 H Pulse Oximetry 96 Oxygen Delivery Method Room Air MDM - Back Pain/Injury Lab Data 09/13/22 01:15 09/13/22 01:15 Labs: Lab Results 09/13/22 09/13/22 09/13/22 Range/Units 01:13 01:15 01:15 WBC 13.4 H (4.5-11.0) X10^3/uL RBC 4.60 (4.5-5.9) X10^6/uL Hgb 14.0 (13.5-17.5) g/dL Hct 40.7 L (41-53) % MCV 88.5 (80-100) fL MCH 30.4 (26-34) PG MCHC 34.4 (30-36) % RDW 13.1 (11.6-14.8) % Plt Count 313 (150-400) X10^3/uL Neut % (Auto) 67.8 (50-75) % Lymph % (Auto) 21.3 L (25-40) % [place] % (Auto) 7.4 (3-14) % Eos % (Auto) 2.8 (2-4) % Baso % (Auto) 0.7 (0-2) % Neut # (Auto) 9100 H (3423-8276) /uL Lymph # (Auto) 2900 (3235-1303) /uL [place] # (Auto) 1000 H (0-900) /uL Eos # (Auto) 400 (0-450) /uL Baso # (Auto) 100 (0-100) /uL Sodium 136 L (137-145) mmol/L Potassium 4.1 (3.4-5.1) mmol/L Chloride 100 (98-107) mmol/L Carbon Dioxide 25 (22-32) mmol/L BUN 25 H (9-20) mg/dL Creatinine 1.03 (0.66-1.25) mg/dL Estimated GFR > 60 (>60) mL/min BUN/Creatinine Ratio 24.3 H (6-22) Glucose 282 H (80-110) mg/dL Calcium 9.3 (8.4-10.2) mg/dL Total Bilirubin 0.6 (0.2-1.3) mg/dL AST 26 (17-59) IU/L ALT 24 (<50) IU/L Alkaline Phosphatase 131 H (38-126) U/L Total Protein 8.4 H (6.3-8.2) g/dL Albumin 4.4 (3.5-5.0) g/dL Globulin 4.0 (1.7-4.1) g/dL Albumin/Globulin Ratio 1.1 (1.0-2.8) Urine RBC 5-10/hpf H (0-5/HPF) Urine WBC 1-5/hpf (0-5/HPF) Ur Squamous Epith Cells 0-1 /hpf (0-5/HPF) Uric Acid Crystals Moderate H (None) Amorphous Sediment 1+ Urine Bacteria Few (2-10) H (None) Hyaline Casts 1-5/lpf (None) Granular Casts 1-5/lpf (None) Urine Mucus 2+ H (Negative) Ur Culture Indicated? Cult not indicated Urine Dip Bedside Urine Glucose 1000 mg/dl Bedside Urine Bilirubin - Negative Bedside Urine Ketone - Negative Urine Specific [place] 1.030 Bedside Urine Occult Blood +++ Bedside Urine pH 5.5 Bedside Urine Protein + 30 Bedside Urine Urobilinogen - Negative Bedside Urine Nitrite - Negative Bedside Urine Leukocytes - Negative Esterase Imaging Data CT scan - abdomen/pelvis: Radiologist's Impression: PROCEDURE:? CT KIDNEY URETER BLADDER (KUB) ? INDICATIONS:? right flank pain possible kidney stone ? TECHNIQUE:? Axial sections were acquired from the lung bases to the pubic symphysis.? Coronal and sagittal reformats were performed.? For radiation dose reduction, the following was used: ?automated exposure control, adjustment of mA and/or kV according to patient size.? ? COMPARISON:? None. ? FINDINGS:? Image quality:? There is metallic streak artifact from patient's right hip prosthesis.? ? Lung bases:? There is a small loculated right pleural effusion with associated pleural thickening versus a small empyema.? There is associated right basilar atelectasis and scarring.? Left lung bases clear. Heart:? Heart is normal in size. ? URINARY: Right Kidney and Ureter: ? There is an obstructing stone at the right ureteropelvic junction measuring up to 0.8 cm with attenuation values of approximately 400-500 Hounsfield units.? There is associated mild right hydronephrosis with perinephric and periureteral fat stranding.? The right ureter is nondistended distal to the UPJ.? There are 3 additional nonobstructing stones within the right kidney with the largest measuring up to 0.5 cm.? An exophytic right renal cyst is noted.? ? Left Kidney and Ureter: ? No stones or hydronephrosis.? No hydroureter. ? Bladder:? Normal wall thickness. No stones. ? ? ? ABDOMEN: Liver:? There is heterogeneous attenuation of the liver suggestive of fatty infiltration. ? Gallbladder:? Surgically absent. Biliary ducts:? No biliary ductal dilatation.? ? Pancreas:? Unremarkable.? ? Spleen:? Normal in size.? ? Adrenal Glands:? No adrenal nodules.? ? ? Stomach and Bowel:? Stomach, small bowel loops, and colon are normal in caliber and wall thickness.? The appendix is normal.? There is colonic diverticulosis without acute diverticulitis. Peritoneum:? No abnormal intraperitoneal fluid.? No free air.? ? Ventral Wall: ? No hernia.? Abdominal Nodes:? No retroperitoneal or mesenteric adenopathy by size criteria.? Vessels:? Aorta and inferior vena cava are normal in size.? ? PELVIS: Pelvic Organs:? Unremarkable.? ? Pelvic Nodes: No enlarged lymph nodes.? Miscellaneous: No inguinal hernias identified. ? ? ? Bones:? Visualized osseous structures demonstrate no suspicious focal lesions. IMPRESSION:? ? 1. Obstructing urinary stone at the right UPJ with mild right hydronephrosis. ? 2. Additional nonobstructing right renal stones as described. ? 3. No evidence of appendicitis.? ? ? Dictated by: Sanchez Dc M.D. on 09/13/2022 at 2:39 ? ? [facility] Narrative Medical decision making narrative: Patient 67-year-old male who presents with right flank pain ongoing for last couple of days. He had nausea vomiting with severe pain today. He is found to have a 0.8 mm ureteral stone at the UPJ. No evidence of LALIT. He does have mild leukocytosis of 13. He is got bacteria in his urine but no evidence of sepsis. He is afebrile. At this time reasonable to start him on antibiotics. His pain is completely controlled after Toradol. Not requiring anything further. Recommend outpatient follow-up with Urology. Given strict return precautions Discharge Plan Departure Patient Disposition: Home Clinical Impression: Kidney stones, Acute UTI Instructions: DI for Kidney Stones Activity Restrictions/Additional Instructions: *You have been diagnosed with kidney stone *What to do: You have an 8 mm kidney stone on right side. You will likely need assistance passing this. Stay hydrated *Continue to take medications as directed Zofran 4 mg every 8 hours if needed for nausea or vomiting Flomax 0.4 mg daily Motrin 600 mg every 6 hours if needed for [id number] pain [place] 1-2 tablets every 6 hours if needed for severe pain Keflex 500 mg twice a day for 7 days *Follow up with your primary care provider in 2-3 days or call [phone] *Return to ER if you should have increasing pain persistent vomiting fever chills or any new, worsening or concerning symptoms CONTROLLED SUBSTANCE DISCHARGE (Narcotoic/benzodiazepine/Flexeril/Phenergan) 1. You have been prescribed narcotic medications, it does have acetaminophen/Tylenol/paracetamol in it, DO NOT TAKE MORE THAN 4,00mg in 24 hours of Tylenol. TRAMADOL DOES NOT CONTAIN TYLENOL 2. Please understand that we cannot provide further refills of narcotics, benzodiazepines or controlled substances through the ED and her pain management will need to be through your provider. 3. While on these medications you cannot drive or operate heavy machinery. 4. You cannot sign legal documents or perform any duties such as this. 5. As long as you're taking opiate pain medications he should also be taking a stool softener such as Colace, Dulcolax, MiraLAX or prune juice, to help avoid constipation. Prescriptions: New hydrocodone-acetaminophen 5-325 mg tablet 1 tab PO Q6H PRN (Reason: pain) Qty: 10 0RF tamsulosin [Flomax] 0.4 mg capsule 0.4 mg PO DAILY Qty: 7 0RF Rx Instructions: administer 30 minutes after same meal each day; swallow whole with liquid; do not crush/chew/dissolve/open cephalexin 500 mg capsule 500 mg PO BID 7 Days Qty: 14 0RF ondansetron 4 mg tablet,disintegrating 4 mg PO Q8H PRN (Reason: nausea and vomiting) Qty: 10 0RF No Action metformin 500 mg Tablet 500 mg PO BID atorvastatin 20 mg Tablet 20 mg PO DAILY aspirin 81 mg Tablet,Delayed Release (Dr/Ec) 81 mg PO DAILY acetaminophen [Tylenol Arthritis Pain] 650 mg Tablet Extended Release 1,300 mg PO QD-BID PRN (Reason: Pain) oxycodone 5 mg Tablet 5 mg PO Q3HR PRN (Reason: Pain, Moderate (4-6)) Qty: 40 0RF hydroxyzine pamoate 25 mg Capsule 25 mg PO Q6HR PRN (Reason: Spasms) Qty: 40 0RF Referrals: Dustin Kendrick MD [Physician] - Duy Cormier MD [Physician] - Arash Mckay MD [Primary Care Provider] - Stand Alone Forms: Patient Portal/API
[2022-09-13] MEDS: cephALEXin 250 MG CAP PREPACK 1 BOTTLE MISC (04:08)
[2022-09-13] MEDS: HYDROCODONE/ACET 5/325 PREPACK 1 BOTTLE MISC (04:08)
[2022-09-13] MEDS: ONDANSETRON 4 MG ODT PREPACK 1 BOTTLE MISC (04:08)
[2022-09-13 04:12] VITALS: BP 155/83; PULSE 77; RESP 18; O2SAT 98
== END 2022-09-13 04:21 | disposition home or self-care (01) ==
PROVIDERS: Emergency Provider Emergency Medicine; PCP Family Medicine
DX: N20.0 Calculus of kidney (principal); N39.0 Urinary tract infection, site not specified
CPT/HCPCS: 36415; 74176; 80053; 81003; 81015; 85025; 87086; 96374; 96375; 99284; J1885; J2405

== ENCOUNTER 2022-09-20 11:41 | Day surgery (SDC) | payer MEDICARE, OTHER, SELFPAY ==
[2022-09-14 16:06] VITALS: BMI 34.3
[2022-09-19 08:14] VITALS: BMI 37.3
[2022-09-20 11:56] VITALS: BP 176/98; PULSE 102; RESP 16; TEMP 36.3; O2SAT 95; BMI 37.3
--- NOTE | 2022-09-20 12:01 | PM.PREOP ---
Pre-operative Note COVID-19 COVID-19 status: Not tested Criteria for continued procedure: Non-surgical alternatives not available or appropriate per current SOC Interval Note History & Physical reviewed/Exam performed by Physician: Yes Changes to H&P: No
--- NOTE | 2022-09-20 12:49 | SUR.OPER ---
Lithotomy on padded OR bed, head on pillow, arms secured on padded arm boards at <90 degrees abduction. Legs secured in padded yellow fins stirrups.
--- NOTE | 2022-09-20 12:58 | P.OP_ITS ---
Procedure & Clinicians Procedure: Cystoscopy right retrograde pyelogram and right ureteral stent placement. Same procedure as scheduled: Yes Indications: This 67-year-old male presented to the emergency department with profound right- sided renal pain and colic. Through imaging was found to have an 8 mm proximal ureteral stone he presents this time for cystoscopy right ureteral stent placement and possible retrograde pyelogram. Surgeon: Duy Cormier Click Yes if Unassisted: Yes Anesthesia Type: General Operative Notes Findings: Findings: Urethral meatus is normal. Urethra is normal along its length with normal mucosa. Sphincter as well coapted. The prostate shows moderate obstructive character. The right and left ureteral orifices in normal position with clear efflux. There is a small amount of calcific debris in the bladder very punctate smaller than sugar granules. The remainder of the bladder mucosa is normal. A retrograde pyelogram there was hydronephrosis. The stone was not directly visualized and a 7 [place] by multi length stent was left in the right collecting system in good position without a string. No other abnormalities were noted. Closure Type: not applicable Specimen(s): other Prosthetic devices, grafts, tissues, transplants, or devices: Seven [place] by multi length stent was left in good position in the right collecting system without a string. Estimated Blood Loss (mL): 0 Blood products transfused: none Procedure in detail: Procedure in detail: After informed consent was obtained, the patient was identified and brought to the operating room where he was placed in the supine position on the table and anesthesia was induced and maintained as well as antibiotics administered. After ensuring an adequate level of anesthesia the patient was transitioned to the lithotomy position where he was prepped, draped and prepared for Transurethral procedure. After prepping, draping come ensuring an adequate level of anesthesia and time-out a 22 [place] cystoscope was passed through the urethra prostate into the bladder were cystoscopy was performed. The right ureteral orifice was then identified and a hybrid wire was passed into the ureteral orifice and up and into the collecting system under fluoroscopic guidance. [place] catheter was then passed over the wire and the wire removed. Contrast was instilled and the outlined of the renal pelvis and calices was identified. Again hydronephrosis was noted and was confirmed that we were actually in the collecting system. The wire was then passed up through the [place] catheter the [place] catheter backed out and the stent passed in a coaxial fashion over the wire positioned in the renal pelvis under fluoroscopic visualization in the bladder under direct vision then [place] harness was removed the stent was left in good position. This was confirmed by direct vision in the bladder and again by fluoroscopy. With the stent in good position the bladder was drained the scope was removed and the patient was awakened having tolerated the procedure well. Patient was then transferred to the postanesthesia care unit for recovery to be discharged home to follow up my office in approximately 10 days. The stone will be treated at a later date depending on its final position. There were no complications Complications: none Post-operative Condition: stable Disposition: PACU Plan for aftercare: Patient to be discharged to home to follow up my office in approximately 10-14 days.
[2022-09-20 13:03] VITALS: BP 117/75; PULSE 88; RESP 11; TEMP 36.9; O2SAT 96
[2022-09-20 13:06] VITALS: BP 120/85; PULSE 88; RESP 11; O2SAT 95
[2022-09-20 13:07] VITALS: BP 122/80; PULSE 94; RESP 13; O2SAT 96
[2022-09-20 13:12] VITALS: BP 127/80; PULSE 82; RESP 22; O2SAT 95
[2022-09-20] MEDS: LACTATED RINGERS 1,000 ML 42 ML IV (13:14)
[2022-09-20] MEDS: ONDANSETRON 4 MG/2 ML INJ IV (13:26)
[2022-09-20] MEDS: PHENAZOPYRIDINE 100 MG TABLET 200 MG PO (13:27)
== END 2022-09-20 13:37 | disposition home or self-care (01) ==
PROVIDERS: PCP Family Medicine; Referring Provider Urology; Visit Provider Urology
PROC: (CPT 52332; principal; 2022-09-20 12:00)
DX: N20.1 Calculus of ureter (principal); N13.30 Unspecified hydronephrosis; N21.0 Calculus in bladder; E11.9 Type 2 diabetes mellitus without complications; Z79.84 Long term (current) use of oral hypoglycemic drugs
CPT/HCPCS: 52332; 76000; J0690; J1100; J1170; J2405; J2704; J3010; J3490

== ENCOUNTER → 2022-10-10 09:34 | Outpatient (CLI) | payer MEDICARE, OTHER, SELFPAY ==
[2022-09-14 16:06] VITALS: BMI 34.3
--- NOTE | 2022-10-10 09:35 | DI.RAD.S_ITS ---
PROCEDURE: XR KUB INDICATIONS: Follow-up kidney stone TECHNIQUE: One view of the abdomen acquired. COMPARISON: [facility], CT, CT KIDNEY URETER BLADDER (KUB), 09/13/2022, 1:40. FINDINGS: Surgical changes and devices: Right-sided ureteral stent in place. Right upper quadrant surgical clips. Right hip arthroplasty. Bowel: Bowel gas pattern is normal. Soft tissues: No suspicious abdominal calcifications. Visualized solid organ contours appear normal in size. Bones: No suspicious bony lesions. IMPRESSION: Status post right ureteral stent placement. No definite calcifications are seen within the bilateral kidneys by radiograph. Dictated by: Osman Oneal M.D. on 10/10/2022 at 11:38 Approved by: Osman Oneal M.D. on 10/10/2022 at 11:40
== END ==
PROVIDERS: PCP Family Medicine; Referring Provider Urology; Visit Provider Urology
DX: N20.1 Calculus of ureter (principal); R39.9 Unspecified symptoms and signs involving the genitourinary system; R31.29 Other microscopic hematuria; Z96.0 Presence of urogenital implants
CPT/HCPCS: 74018; 81002; 99213

== ENCOUNTER → 2022-10-18 10:42 | Outpatient (CLI) | payer MEDICARE, OTHER, SELFPAY ==
[2022-09-14 16:06] VITALS: BMI 34.3
--- NOTE | 2022-10-18 | DI.CT.S_ITS ---
PROCEDURE: CT KIDNEY URETER BLADDER (KUB) INDICATIONS: RIGHT-SIDED KIDNEY STONE TECHNIQUE: Axial sections were acquired from the lung bases to the pubic symphysis. Coronal and sagittal reformats were performed. For radiation dose reduction, the following was used: automated exposure control, adjustment of mA and/or kV according to patient size. COMPARISON: [facility], CR, XR KUB, 10/10/2022, 9:45. [facility], CT, CT KIDNEY URETER BLADDER (KUB), 09/13/2022, 1:40. FINDINGS: Image quality: Excellent. Lung bases: Unchanged appearance. Small thick-walled pleural effusion on the right. Wedge-shaped right posterior basilar atelectasis.. Heart: No significant findings. URINARY: Right Kidney: Continued presence of small nonobstructing lower pole calculi, 3 mm or less. Unchanged [id number] hydronephrosis. Right Ureter: Interval removal poor passage of a proximal right ureteral stone. A right double-J stent is in place. Its proximal pigtail is in the renal pelvis and its distal pigtail is in the bladder. Left Kidney: No stones or hydronephrosis. Left Ureter: No hydroureter. Bladder: Normal wall thickness. No stones. Right ureteral stent has a pigtail in the bladder. ABDOMEN: Liver: Mild diffuse hepatic steatosis. No solid masses identified. Gallbladder: Surgically absent. Biliary ducts: Unremarkable. Pancreas: Unremarkable. Spleen: Unremarkable. Adrenal Glands: Unremarkable. Stomach and Bowel: Moderate to severe sigmoid diverticulosis without evidence of diverticulitis. Normal appendix. No dilated loops or thickened loops. Peritoneum: No abnormal intraperitoneal fluid. No free air. Ventral Wall: No hernia. Abdominal Nodes: No enlarged retroperitoneal or mesenteric lymph nodes. Vessels: Aorta and inferior vena cava are normal in size. PELVIS: Pelvic Organs: Unremarkable. Pelvic Nodes: Unremarkable. Miscellaneous: No inguinal hernias are seen. Bones: Lumbar degenerative change. No lytic or blastic bony lesions. No compression fractures. IMPRESSION: 1. Interval passage or removal of a proximal right ureteral stone with interval placement of a right double-J stent. Despite stent placement, there is still [id number] right hydronephrosis. 2. Small nonobstructing right renal stones. 3. No left renal stones or ureteral stones. 4. Mild diffuse hepatic steatosis. 5. Moderate to severe coronary artery calcifications. 6. Small right pleural effusion and right basilar atelectasis are not significantly changed. Dictated by: Lan Stewart M.D. on 10/18/2022 at 13:29 Approved by: Lan Stewart M.D. on 10/18/2022 at 13:38
== END ==
PROVIDERS: PCP Family Medicine; Referring Provider Urology; Visit Provider Urology
DX: N20.0 Calculus of kidney (principal); N13.30 Unspecified hydronephrosis; K76.0 Fatty (change of) liver, not elsewhere classified; I25.10 Atherosclerotic heart disease of native coronary artery without angina pectoris; J90 Pleural effusion, not elsewhere classified; J98.11 Atelectasis; Z96.0 Presence of urogenital implants
CPT/HCPCS: 74176

== ENCOUNTER → 2022-10-31 09:18 | Outpatient (CLI) | payer MEDICARE, OTHER, SELFPAY ==
[2022-09-14 16:06] VITALS: BMI 34.3
--- NOTE | 2022-10-31 09:20 | DI.RAD.S_ITS ---
PROCEDURE: XR KUB INDICATIONS: kidney stones TECHNIQUE: One view of the abdomen acquired. COMPARISON: [facility], CR, XR KUB, 10/10/2022, 9:45. FINDINGS: Surgical changes and devices: Ureteral stent on the right is unchanged in position. Status post cholecystectomy. Right hip arthroplasty. Bowel: Bowel gas pattern is normal. Soft tissues: No suspicious abdominal calcifications. Visualized solid organ contours appear normal in size. Bones: No suspicious bony lesions. Right hip replacement. Degenerative changes of the left hip. IMPRESSION: 1. Right ureteral stent is in unchanged position. 2. No acute abnormality. Dictated by: Kyle Lawrence M.D. on 10/31/2022 at 10:15 Approved by: Kyle Lawrence M.D. on 10/31/2022 at 10:17
== END ==
PROVIDERS: PCP Family Medicine; Referring Provider Urology; Visit Provider Urology
DX: N20.1 Calculus of ureter (principal); R39.9 Unspecified symptoms and signs involving the genitourinary system; Z96.0 Presence of urogenital implants
CPT/HCPCS: 74018

== ENCOUNTER → 2023-01-21 08:49 | Outpatient (CLI) | payer MEDICARE, OTHER, SELFPAY ==
[2022-09-14 16:06] VITALS: BMI 34.3
--- NOTE | 2023-01-21 08:50 | DI.RAD.S_ITS ---
PROCEDURE: XR KUB INDICATIONS: retained ureteral stent TECHNIQUE: One view of the abdomen acquired. COMPARISON: [facility], CR, XR KUB, 10/31/2022, 9:30. [facility], CR, XR KUB, 10/10/2022, 9:45. FINDINGS: Surgical changes and devices: Redemonstration of right double-J nephroureteral stent, in unchanged position compared to prior. Right upper quadrant cholecystectomy clips. Bowel: Bowel gas pattern is nonobstructive. Soft tissues: No suspicious abdominal calcifications. Visualized solid organ contours appear normal in size. Bones: No suspicious bony lesions. Partially visualized right hip arthroplasty. IMPRESSION: Right double-J nephroureteral stent is in similar position compared to prior. Dictated by: Priscilla John M.D. on 01/21/2023 at 12:07 Approved by: Priscilla John M.D. on 01/21/2023 at 12:10
== END ==
PROVIDERS: PCP Family Medicine; Referring Provider Urology; Visit Provider Urology
DX: N20.1 Calculus of ureter (principal); Z96.0 Presence of urogenital implants
CPT/HCPCS: 74018

== ENCOUNTER → 2023-01-28 06:41 | Outpatient (CLI) | payer MEDICARE, OTHER, SELFPAY ==
[2022-09-14 16:06] VITALS: BMI 34.3
--- NOTE | 2023-01-28 06:42 | DI.CT.S_ITS ---
PROCEDURE: CT ABDOMEN PELVIS WO CON INDICATIONS: Right-sided kidney stone TECHNIQUE: Axial sections were acquired from the lung bases to the pubic symphysis. Coronal and sagittal reformats were performed. For radiation dose reduction, the following was used: automated exposure control, adjustment of mA and/or kV according to patient size. COMPARISON: [facility], CT, CT KIDNEY URETER BLADDER (KUB), 10/18/2022, 10:53. FINDINGS: Image quality: Excellent. Lung bases: Linear atelectasis/scar in the middle lobe and right lower lobe with area of probable rounded atelectasis. Chronic trace right-sided pleural effusion with thickening, stable. Heart: Partially visualized three-vessel moderate to marked coronary vessel calcifications. URINARY: Right Kidney: Stable moderate right-sided hydronephrosis with nonobstructive nephroliths/stone debris in the right lower pole, the largest of which measures 3 mm (2/51). Right upper pole simple cyst. Right Ureter: No hydroureter. Double-J ureteral stent is appropriately positioned and stable. Left Kidney: No stones or hydronephrosis. Left subcentimeter cortical hypodensities too small to characterize, statistically a cyst. Left Ureter: No hydroureter. Bladder: Decompressed, limiting evaluation. No stones. ABDOMEN: Liver: No contour-deforming solid mass. Diffuse hypoattenuation of the liver. Gallbladder: Cholecystectomy. Biliary ducts: No biliary dilation. Pancreas: No ductal dilation. Spleen: Size is within normal limits. Adrenal Glands: No adrenal nodules. Stomach and Bowel: No hiatal hernia. Stomach is decompressed, limiting evaluation, but appears grossly normal. Small and large bowel is normal in caliber, without obstruction. Normal appendix (2/68). Sigmoid and colonic diverticulosis, without diverticulitis. No pneumatosis, pneumoperitoneum or portal venous gas. Peritoneum: No abnormal intraperitoneal fluid. Abdominal Wall: Tiny fat containing umbilical hernia. Fatty atrophy of the paraspinal musculature, as before. Abdominal Nodes: No enlarged retroperitoneal or mesenteric lymph nodes. Vessels: Aorta and inferior vena cava are normal in size. Mild to moderate calcification of the abdominal aorta and branch vessels. PELVIS: Evaluation is mildly limited by streak artifact from right total hip arthroplasty. Pelvic Organs: Mild prostatomegaly. Pelvic Nodes: Unremarkable. Miscellaneous: Small bilateral fat containing inguinal hernias. Bones: No acute fracture. No aggressive appearing lytic or blastic osseous lesion. Partially visualized right total hip arthroplasty is intact. Moderate multilevel degenerative changes of the spine. Multilevel flowing anterior osteophytes in the lower thoracic spine suggestive of DISH. IMPRESSION: 1. Compared to CT KUB dated October 18, 2022, stable moderate right-sided hydronephrosis with nonobstructive nephroliths/stone debris in the right lower pole, the largest of which measures 3 mm. Stable double-J ureteral stent. 2. No left-sided hydronephrosis or nephrolithiasis. 3. Diffuse hypoattenuation of the liver suggestive of steatosis. 4. Sigmoid and colonic diverticulosis, without diverticulitis. 5. Partially visualized moderate to marked three-vessel coronary calcifications. Stable right basilar atelectasis and small chronic pleural effusion. Dictated by: Andria Thao M.D. on 01/28/2023 at 12:43 Approved by: Andria Thao M.D. on 01/28/2023 at 12:53
== END ==
PROVIDERS: PCP Family Medicine; Referring Provider Urology; Visit Provider Urology
DX: N20.1 Calculus of ureter (principal); N13.30 Unspecified hydronephrosis; K57.30 Diverticulosis of large intestine without perforation or abscess without bleeding; K40.20 Bilateral inguinal hernia, without obstruction or gangrene, not specified as recurrent; J90 Pleural effusion, not elsewhere classified; J98.11 Atelectasis; I25.10 Atherosclerotic heart disease of native coronary artery without angina pectoris; I70.0 Atherosclerosis of aorta; N40.0 Benign prostatic hyperplasia without lower urinary tract symptoms; Z96.0 Presence of urogenital implants; Z90.49 Acquired absence of other specified parts of digestive tract
CPT/HCPCS: 74176

== ENCOUNTER → 2023-01-31 09:12 | Outpatient (CLI) | payer MEDICARE, OTHER, SELFPAY ==
[2022-09-14 16:06] VITALS: BMI 34.3
--- NOTE | 2023-01-31 09:14 | DI.RAD.S_ITS ---
PROCEDURE: XR KUB INDICATIONS: Encrusted ureteral stent TECHNIQUE: One view of the abdomen acquired. COMPARISON: [facility], CR, XR KUB, 01/21/2023, 8:51. [facility], CR, XR KUB, 10/31/2022, 9:30. FINDINGS: Surgical changes and devices: Right ureteral stent in place. Right hip arthroplasty. Bowel: Bowel gas pattern is normal. Soft tissues: No suspicious abdominal calcifications. Visualized solid organ contours appear normal in size. Bones: No suspicious bony lesions. IMPRESSION: Right ureteral stent in place. No renal stones are identified. Dictated by: Osman Oneal M.D. on 01/31/2023 at 12:36 Approved by: Osman Oneal M.D. on 01/31/2023 at 12:37
== END ==
PROVIDERS: PCP Family Medicine; Referring Provider Urology; Visit Provider Urology
DX: Z09 Encounter for follow-up examination after completed treatment for conditions other than malignant neoplasm (principal); Z96.0 Presence of urogenital implants
CPT/HCPCS: 74018

== ENCOUNTER 2023-02-26 06:31 | Day surgery (SDC) | payer MEDICARE, OTHER, SELFPAY ==
[2022-09-14 16:06] VITALS: BMI 34.3
[2023-02-22 10:45] VITALS: BMI 35.9
[2023-02-26] VITALS (7 sets, daily range): BP systolic 138–164; BP diastolic 83–99; PULSE 15–94; RESP 10–87; TEMP 36.1–36.5; O2SAT 93–98; BMI 35.2
[2023-02-26] MEDS: ACETAMINOPHEN 325 MG TABLET 975 MG PO (07:03)
[2023-02-26] MEDS: LACTATED RINGERS 1,000 ML 42 ML IV (07:05)
--- NOTE | 2023-02-26 07:23 | SUR.OPER ---
Lithotomy on padded OR bed, head on pillow, arms secured on padded arm boards at <90 degrees abduction. Legs secured in padded yellow fins stirrups.
--- NOTE | 2023-02-26 07:40 | PM.PREOP ---
Pre-operative Note COVID-19 COVID-19 status: Not tested Interval Note History & Physical reviewed/Exam performed by Physician: Yes Changes to H&P: No
[2023-02-26] MEDS: CEFAZOLIN 2 GM/100 ML PREMIX 100 ML IV (07:50)
[2023-02-26] MEDS: iopamidoL 30 ML VIAL INJ (08:33)
--- NOTE | 2023-02-26 09:02 | PM.OP.1 ---
Procedure & Clinicians Procedure: Right ureteroscopy, mechanical lithotripsy of stent encrustation, evacuation of urinary calculi and fragments, removal of right stent, placement of right ureteral stent, retrograde pyelogram, urethral meatal dilation. Same procedure as scheduled: Yes Indications: This 67-year-old male had presented with a right urinary calculus which was treated. He then returned for stent removal after some delay and was noted to have massive encrustation of the distal aspect of the stent in the bladder. He had imaging which included KUB and CT scan which was not definitive in delineating the amount of upper tract encrustation or calcification. So he presents this time for right ureteroscopy disruption of stent encrustation and right ureteral stent removal as well as right ureteral stent replacement or placement. Surgeon: Duy Cormier Click Yes if Unassisted: Yes Anesthesia Type: General Operative Notes Findings: Urethral meatus is normal. (though not accepting of cystoscope it was therefore gently dilated) Urethra is normal along its length with normal mucosa. Sphincter as well coapted prostate showed moderate obstructive character. Left ureteral orifice was in normal position with clear efflux. The bladder mucosa was normal without worrisome lesion. Again on the curls of the bladder portion of the stent there was a massive amount of encrustation which was disrupted with a mechanical lithotrite. At ureteroscopy there was in the upper tract minimal encrustation on the stent and some calcific debris observed in the renal pelvis. There was no other abnormality noted. After the stent removal retrograde pyelogram was performed and revealed no evidence of extravasation. A somewhat dilated renal pelvis otherwise no abnormality. At the end of the procedure because of the calcific debris and edema a 7 [place] by multi length stent was placed in the right collecting system with the string removed. All large fragments were evacuated from the bladder. Closure Type: not applicable Specimen(s): other (Fragmented urinary calculi) Prosthetic devices, grafts, tissues, transplants, or devices: 7 [place] by multi length stent right collecting system no string. Estimated Blood Loss (mL): 0 Blood products transfused: none Procedure in detail: Procedure in detail: After informed consent was obtained, the patient was identified and brought to the operating room where he was placed in a supine position on the table. He then had anesthesia induced and maintained. Ensuring an adequate level of anesthesia the patient was transitioned to the lithotomy position where he was prepped, draped, prepared for Transurethral procedure. After prepping, draping, ensuring an adequate level of anesthesia time-out and administration of antibiotics an attempt was made to pass the 22 [place] cystoscope the meatus was not accepting of this and so the meatus was then gently dilated to 26 [place] with Pat sounds. The scope then easily passed through the urethra prostate and end of the bladder where cystoscopy was performed. The right ureteral orifice was identified and a hybrid guidewire was passed up and into the collecting system under fluoroscopic visualization. The scope was backed out the wire was left in place and this was reserved as a safety wire. The cystoscope was once again inserted and the mechanical lithotrite was inserted and the encrustations broken off the distal end of the stent. These were then evacuated. A 2nd guidewire was then passed up into the collecting system along the stent. Over this working wire with the cystoscope removed the flexible ureteral scope was passed up and into the renal pelvis where sequential nephroscopy was performed. With the information in hand that there was minimal encrustation along the length of the stent or in the upper tract the ureteral scope was backed out again the safety wire and the working wire were replaced so that with the ureteral scope out there were 2 wires across the entire length of the collecting system. The stent was then grasped after reinsertion of the cystoscope and pulled out using fluoroscopy to monitor the upper and the stent was straightened out quite easily. This was removed in its entirety. The ureteral scope was then passed up to an area where there was calcific debris. At this point retrograde pyelogram was performed and no significant abnormality was noted. Given the calcific debris and edema from the procedure the ureteral scope was removed. The safety wire was backloaded through the cystoscope which was inserted in the stent passed over the wire up and into the collecting system where it was positioned via fluoroscopic visualization in the bladder under direct vision. The nylon harness was removed and the stent was left in good position. There were a few remaining fragments were then washed out of the bladder. With this accomplished the bladder was drained the scope was removed and the patient was awakened to be transitioned to the postanesthesia care unit for recovery once recovered he will be discharged to home to follow up in my office in approximately 10-14 days with a KUB. There were no complications. Complications: none Post-operative Condition: stable Disposition: PACU Plan for aftercare: Discharged to home follow-up my office 10-14 days with JAM.
[2023-03-11 07:24] LABS: Size 10x5 mm (.); Uric Acid 90 % (.)
== END 2023-02-26 09:45 | disposition home or self-care (01) ==
PROVIDERS: PCP Family Medicine; Referring Provider Urology; Visit Provider Urology
PROC: (CPT 52332; principal; 2023-02-26 07:45)
PROC: (CPT 52332; 2023-02-26 07:45)
DX: N20.2 Calculus of kidney with calculus of ureter (principal); Z96.0 Presence of urogenital implants; N21.0 Calculus in bladder
CPT/HCPCS: 52332; 52351; 76000; 82365; C1771; J0690; J1100; J1170; J1885; J2405; J2704; Q9967

== ENCOUNTER → 2023-06-10 10:32 | Outpatient (CLI) | payer MEDICARE, OTHER, SELFPAY ==
[2022-09-14 16:06] VITALS: BMI 34.3
--- NOTE | 2023-06-10 10:37 | DI.RAD.S_ITS ---
PROCEDURE: XR KUB INDICATIONS: KUB TECHNIQUE: One view of the abdomen acquired. COMPARISON: [facility], CR, XR KUB, 01/31/2023, 9:16. FINDINGS: Surgical changes and devices: Partially visualized right hip arthroplasty. Cholecystectomy clips. Interval removal of ureterovesicular stent on the right. Bowel: Bowel gas pattern is nonspecific. Minimal scattered air-fluid levels. Soft tissues: No suspicious abdominal calcifications. Visualized solid organ contours appear normal in size. Bones: No suspicious bony lesions. IMPRESSION: Minimal scattered air-fluid levels overall nonspecific. This could be related to ileus. Dictated by: Tammi Rene M.D. on 06/10/2023 at 17:02 Approved by: Tammi Rene M.D. on 06/10/2023 at 17:03
== END ==
LOC: RAD 10:36
PROVIDERS: PCP Family Medicine; Referring Provider Urology; Visit Provider Urology
DX: N20.2 Calculus of kidney with calculus of ureter (principal)
CPT/HCPCS: 74018

== ENCOUNTER → 2023-06-14 10:19 | Outpatient (CLI) | payer MEDICARE, OTHER, SELFPAY ==
[2022-09-14 16:06] VITALS: BMI 34.3
[2023-06-14 11:16] LABS: Uric Acid 6.7 mg/dL (3.5-8.5)
[2023-06-16 10:14] LABS: Calcium 10.1 mg/dL (8.6-10.2); Parathyroid Hormone, Intact 18 pg/mL (15-65)
== END ==
PROVIDERS: PCP Family Medicine; Referring Provider Urology; Visit Provider Urology
DX: N20.0 Calculus of kidney (principal)
CPT/HCPCS: 36415; 82310; 83970; 84100; 84550

== ENCOUNTER → 2023-10-15 14:01 | Outpatient (CLI) | payer MEDICARE, OTHER, SELFPAY ==
[2022-09-14 16:06] VITALS: BMI 34.3
== END ==
PROVIDERS: PCP Family Medicine; Visit Provider Urology
DX: R39.9 Unspecified symptoms and signs involving the genitourinary system (principal)
CPT/HCPCS: 87086

== ENCOUNTER → 2024-02-05 11:46 | Outpatient (CLI) | payer MEDICARE, OTHER, SELFPAY ==
[2023-11-20 13:56] VITALS: BMI 34.3
--- NOTE | 2024-02-05 11:47 | DI.RAD.S_ITS ---
PROCEDURE: XR KUB INDICATIONS: Kidney stones TECHNIQUE: One view of the abdomen acquired. COMPARISON: [facility], CT, CT ABDOMEN PELVIS WO CON, 01/28/2023, 6:47. [facility], CR, XR KUB, 06/10/2023, 10:41. [facility], CR, XR KUB, 01/31/2023, 9:16. FINDINGS AND IMPRESSION: Overall moderate fecal loading without specific signs or bowel obstruction. Stool partially obscures the renal fossa No convincing calcified renal stones are seen. There is a linear pelvic calcification, indeterminate for rectal contents versus bladder stone. Osseous degenerative changes. Cholecystectomy clips. Partially seen right hip arthroplasty. Dictated by: Fitz Galvez M.D. on 02/05/2024 at 16:48 Approved by: Fitz Galvez M.D. on 02/05/2024 at 16:50
== END ==
LOC: RAD 11:47
PROVIDERS: PCP Family Medicine; Referring Provider Urology; Visit Provider Urology
DX: N20.2 Calculus of kidney with calculus of ureter (principal); Z87.442 Personal history of urinary calculi; Z96.641 Presence of right artificial hip joint
CPT/HCPCS: 74018